=== PATIENT | female | born 2000 | race Caucasian/White ===

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

== ENCOUNTER 2022-10-03 09:10 | Emergency (ER) | payer MEDICAID ==
[~2022-10-03] VITALS: Ht 165.1 cm; Wt 66.0 kg
[2022-10-03 11:07] LABS: Basophils # (auto) 0 10 ^3/uL (0-0.2); Basophils % (auto) 0.6 % (0.0-2.0); Eosinophils # (auto) 0.1 10 ^3/uL (0-0.8); Eosinophils % (auto) 1.2 % (0.0-7.0); Hematocrit 43.9 % (36.0-46.0); Hemoglobin 14.4 g/dL (12.2-16.2); Lymphocytes # (auto) 1.2 10 ^3/uL (0.4-5.4); Mean Corpuscular Hemoglobin 27.9 pg (28.0-32.0); Mean Corpuscular Hgb Conc. 32.7 g/dL (32.0-36.0); Mean Corpuscular Volume 85.2 fL (80.0-100.0); Monocytes # (auto) 0.4 10 ^3/uL (0-1.3); Monocytes % (auto) 4.5 % (0.0-12.0); Neutrophils # (auto) 6.3 10 ^3/uL (1.6-8.6); Neutrophils % (auto) 78.7 % (37.0-80.0); Nucleated Red Blood Cells % 0.1 %; Red Blood Cells 5.16 10^6/uL (4.0-5.20); Red Cell Distribution Width 14.2 % (11.8-14.3)
[2022-10-03 11:09] LABS: Albumin 4.2 g/dL (3.4-5.0); BUN/Creatinine Ratio 15.7; Calcium 9.3 mg/dL (8.5-10.1)
[2022-10-03 11:17] LABS: Bilirubin, Total 1.2 mg/dL (0.2-1.0)
[2022-10-03] MEDS ORDERED: ACETAMINOPHEN 500 MG TAB PO ONE (11:45)
[2022-10-03] MEDS ORDERED: HYDROcodone-ACET 10/325MG TAB PO ONE (13:00)
[2022-10-03 14:10] VITALS: BP 111/65
[2022-10-03 16:38] LABS: Urine Bacteria NONE SEEN /hpf (None Seen); Urine Blood Negative /uL (Negative); Urine Hyaline Cast FEW /lpf (0 - 2); Urine Mucus FEW (None Seen); Urine Specific Gravity 1.013 (1.001-1.035); Urine WBC 2 /hpf (0 - 5)
[2022-10-03] MEDS ORDERED: HYDR-4902 PO (17:23)
[2022-10-03] MEDS ORDERED: IBUP800T26 PO (17:23)
== END 2022-10-03 17:36 | disposition home or self-care (01) ==
LOC: ER 09:10
DX: N83.209 Unspecified ovarian cyst, unspecified side (principal)
CPT/HCPCS: 36415; 76830; 76856; 80053; 81001; 81025; 82962; 85025